=== PATIENT | male | born 1975 | race Caucasian/White ===

== ENCOUNTER 2018-12-30 15:40 | Emergency (ER) | payer OTHER ==
[2018-12-30 16:23] VITALS: BP 173/115
--- NOTE | 2018-12-30 16:36 | UC ---
Knee Pain HPI - HPI Summary HPI Summary: ACCIDENTALLY HIT ON THE INSIDE OF HIS L KNEE BY A PIECE OF STEEL WHILE AT WORK TODAY. NOTES SOME LOCAL PAIN AND SWELLING WHERE HIT. STATES JOB MADE HIM COME IN. PT QUESTIONED ABOUT HIS BP. HE ADMITS TO HX HTN AND MISSED HIS MEDICATION BOTH YESTERDAY AND TODAY. HE STATES HE WILL TAKE WHEN HE GETS HOME. HE DINES ANY HEADACHE, CP, SOB. - History of Current Complaint Chief Complaint: UCLowerExtremity Stated Complaint: LEFT KNEE INJURY Time Seen by Provider: 12/30/18 16:26 Hx Obtained From: Patient Pain Intensity: 5 Aggravating Factor(s): Movement Associated Signs And Symptoms: Positive: Swelling, Bruising - Risk Factors Septic Arthritis Risk Factor: Negative Gout Risk Factor: Negative - Allergies/Home Medications Allergies/Adverse Reactions: Allergies Allergy/AdvReac Type Severity Reaction Status Date / Time No Known Allergies Allergy Verified 12/30/18 16:15 Home Medications: Home Medications Blood Pressure Med 1 dose PO DAILY 12/30/18 [History Confirmed 12/30/18] Omeprazole 20 mg PO DAILY 12/30/18 [History Confirmed 12/30/18] PMH/Surg Hx/FS Hx/Imm Hx Cardiovascular History: Hypertension GI/ History: Gastroesophageal Reflux - Surgical History Surgical History: Yes Surgery Procedure, Year, and Place: R shoulder replacement - Family History Known Family History: Positive: Non-Contributory - Social History Occupation: Employed Full-time Alcohol Use: Daily Substance Use Type: None Smoking Status (MU): Heavy Every Day Tobacco Smoker Type: Cigars, Smokeless Tobacco Amount Used/How Often: 4 cigars daily/ 1 can weekly Review of Systems All Other Systems Reviewed And Are Negative: No Constitutional: Negative: Fever Skin: Negative: Rash Musculoskeletal: Negative: Decreased ROM Neurological: Negative: Paresthesia, Numbness Physical Exam Triage Information Reviewed: Yes Appearance: Well-Appearing Vital Signs: Initial Vital Signs Temp 98.2 F 12/30/18 16:15 Pulse 98 12/30/18 16:15 Resp 17 12/30/18 16:15 BP 173/115 12/30/18 16:15 Pulse Ox 97 12/30/18 16:15 Vital Signs Reviewed: Yes Neck: Positive: Supple Respiratory: Positive: Lungs clear Cardiovascular: Positive: RRR Abdomen Description: Positive: Nontender Musculoskeletal: Positive: Other: - LLE: HIP AND LOWER LEG ARE NON TENDER. KNEE : TENDER OVER MEDIAL-PROXIMAL TIBIA WITH MILD SWELLING AND BRUISING BUT NO BREAKS IN SKIN. TENDER OVER MEDIAL JOINT LINE. NO JOINT LAXITY. ACTIVE ROM IS INTACT AND FULL ROM INTACT. REST OF LEG HAS GROSS S/V/M FUNCTION. SLOW BUT STEADY GAIT. Neurological: Positive: Alert Psychological: Positive: Age Appropriate Behavior Skin Exam: Normal Knee Pain Course/Dx - Course Course Of Treatment: PT REPORTED TO HAVE WALKED OUT PRIOR TO HIS XRAY - Differential Dx/Diagnosis Provider Diagnosis: Hypertension, uncontrolled, Left knee pain Discharge - Sign-Out/Discharge Documenting (check all that apply): Patient Departure All imaging exams completed and their final reports reviewed: No Studies - Discharge Plan Condition: Stable Disposition: ELOPEMENT Referrals: Non Staff,Doctor [Primary Care Provider] - - Billing Disposition and Condition Condition: STABLE Disposition: Elopement
== END 2018-12-30 17:06 | disposition home or self-care (01) ==
LOC: UCCORT 15:40
DX: M25.562 Pain in left knee (principal); I10 Essential (primary) hypertension; K21.9 Gastro-esophageal reflux disease without esophagitis; Z96.611 Presence of right artificial shoulder joint; F17.290 Nicotine dependence, other tobacco product, uncomplicated; F17.220 Nicotine dependence, chewing tobacco, uncomplicated
CPT/HCPCS: 99202; G0463